=== PATIENT | male | born 1960 | race Hispanic/Latino ===

== ENCOUNTER 2017-10-01 13:32 | Inpatient (IN) | payer OTHER ==
[~2017-10-01] VITALS: Ht 175.3 cm; Wt 125.2 kg
[2017-10-01] MEDS ORDERED: SODIUM CHLORIDE 0.9% 1000ML 1,000 ML IV STA (14:24)
--- NOTE | 2017-10-01 15:53 | Diagnostic Imaging Report ---
PROCEDURE:X-RAY RIGHT ANKLE, COMPLETE INDICATION:Chronic contraction COMPARISON:None. FINDINGS: Deformity of the calcaneus and distal fibula, with amorphous calcific densities projecting in the soft tissues anterolateral to the fibula. Degenerative changes also seen in the ankle mortise. Moderate to marked soft tissue swelling surrounding the ankle. No sclerotic lesions. CONCLUSION: 1. Findings in the right ankle likely reflect sequela of chronic trauma. Infection/osteomyelitis is a consideration in the acute setting.. Jaime De M.D. Dictated by: Jaime De M.D. on 10/01/2017 at 16:01 Electronically approved by: Jaime De M.D. on 10/01/2017 at 16:01
--- NOTE | 2017-10-01 15:55 | Diagnostic Imaging Report ---
PROCEDURE:X-RAY RIGHT FOOT, COMPLETE COMPARISON:None. INDICATIONS:FOOT PAIN, CHRONIC CONTRACTION FINDINGS: Deformity of the calcaneus and distal fibula with bony fragmentation. Degenerative changes in the level of the ankle mortise. No sclerotic lesions. Large inferior calcaneal enthesophyte. Marked soft tissue swelling surrounding the foot. CONCLUSION: Findings likely related to chronic trauma. Infection/osteomyelitis is a consideration in the acute setting. No prior films are available for comparison. Jaime De M.D. Dictated by: Jaime De M.D. on 10/01/2017 at 16:04 Electronically approved by: Jaime De M.D. on 10/01/2017 at 16:04
[2017-10-01] MEDS ORDERED: VANCOMYCIN 1GM/NS 250 ML 250 ML IV STA (16:10)
[2017-10-01 17:21] LABS: BASOPHILS % 0.2 % (0.0-1.0); HEMATOCRIT 33.1 % (38.2-49.6); HEMOGLOBIN 11.7 g/dL (14.0-18.0); LYMPHOCYTES # (AUTO) 0.4 (1.0-3.2); LYMPHOCYTES % 2.3 % (18.0-39.1); MEAN CORPUSCULAR HEMOGLOBIN 38.1 pg (28-32); MEAN CORPUSCULAR HGB CONC 35.3 g/dL (31-35); MEAN CORPUSCULAR VOLUME 107.8 fL (81-99); MONOCYTES # (AUTO) 0.8 (0.2-0.8); NEUTROPHILS # (AUTO) 14.7 (2.1-6.9); NEUTROPHILS % 91.1 % (38.7-80.0); PLATELET COUNT 158 x10e3/uL (140-360); RED BLOOD COUNT 3.07 x10e6/uL (4.3-5.7); RED CELL DISTRIBUTION WIDTH 12.6 % (11.7-14.4)
[2017-10-01 17:41] LABS: ALANINE AMINOTRANSFERASE 17 IU/L (0-55); ALBUMIN 2.9 g/dL (3.5-5.0); ALBUMIN/GLOBULIN RATIO 0.5 (0.8-2.0); ALKALINE PHOSPHATASE 93 IU/L (40-150); ANION GAP 11.2 mmol/L (8-16); BLOOD UREA NITROGEN 15 mg/dL (7-26); BUN/CREATININE RATIO 14 (6-25); CALCIUM 8.8 mg/dL (8.4-10.2); CARBON DIOXIDE 26 mmol/L (22-29); CHLORIDE 97 mmol/L (98-107); CREATININE, SERUM 1.05 mg/dL (0.72-1.25); EST GLOMERULAR FILTRATION RATE > 60 ML/MIN (60-); GLUCOSE 149 mg/dL (74-118); POTASSIUM 3.2 mmol/L (3.5-5.1); SODIUM 131 mmol/L (136-145)
[2017-10-01] MEDS ORDERED: PIPER-TAZ 3.375 GM 50 ML IV STA (18:42)
[2017-10-01] MEDS ORDERED: SODIUM CHLORIDE FLUSH 10 ML SYR INJ PRN (18:45)
[2017-10-01] MEDS ORDERED: ONDANSETRON HCL INJ 2 MG/ML VIAL IV PRN (18:45)
[2017-10-01] MEDS ORDERED: SODIUM CHLORIDE 0.9% 1000ML 1,000 ML IV ONE (18:45)
[2017-10-01] MEDS ORDERED: VANCOMYCIN 1GM/NS 250 ML 250 ML IV ONE (19:00)
[2017-10-01 19:18] LABS: BAND NEUTROPHILS % (MANUAL) 12 %; LYMPHOCYTES % (MANUAL) 2 % (19-48); METAMYELOCYTES % (MANUAL) 1 % (0-0); MONOCYTES % (MANUAL) 7 % (3.4-9.0); NEUTROPHILS % (MANUAL) 78 % (40-74)
[2017-10-01 19:20] LABS: ANISOCYTOSIS SLIGHT; PLATELET ESTIMATE ADEQUATE; PLATELET MORPHOLOGY COMMENT NORMAL; RBC MORPHOLOGY COMMENT NORMAL
[2017-10-01] MEDS ORDERED: SODIUM CHLORIDE 0.9% 1000ML 1,000 ML ONE (23:07)
[2017-10-01 23:15] VITALS: BP 124/74
[2017-10-01] MEDS: PIPER-TAZ 3.375 GM 50 ML IV SCH (23:21)
[2017-10-01] MEDS: ACETAMINOPHEN 325 MG TAB PO PRN (23:27)
[2017-10-02] VITALS: BP 124/74
[2017-10-02] MEDS: MORPHINE SULFATE 5 MG/ML VIAL IV PRN ×2 (02:06→18:55)
[2017-10-02] MEDS: PIPER-TAZ 3.375 GM 50 ML IV SCH ×3 (05:36→22:10)
[2017-10-02 07:23] LABS: BASOPHILS % 0.2 % (0.0-1.0); HEMATOCRIT 29.3 % (38.2-49.6); HEMOGLOBIN 10.4 g/dL (14.0-18.0); LYMPHOCYTES % 6.8 % (18.0-39.1); MEAN CORPUSCULAR HEMOGLOBIN 38.8 pg (28-32); MEAN CORPUSCULAR HGB CONC 35.5 g/dL (31-35); MEAN CORPUSCULAR VOLUME 109.3 fL (81-99); MONOCYTES # (AUTO) 0.9 (0.2-0.8); NEUTROPHILS # (AUTO) 12.3 (2.1-6.9); NEUTROPHILS % 85.9 % (38.7-80.0); PLATELET COUNT 154 x10e3/uL (140-360); RED BLOOD COUNT 2.68 x10e6/uL (4.3-5.7); RED CELL DISTRIBUTION WIDTH 12.7 % (11.7-14.4)
[2017-10-02 07:37] LABS: ALANINE AMINOTRANSFERASE 16 IU/L (0-55); ALBUMIN 2.3 g/dL (3.5-5.0); ALBUMIN/GLOBULIN RATIO 0.4 (0.8-2.0); ALKALINE PHOSPHATASE 73 IU/L (40-150); ANION GAP 11.2 mmol/L (8-16); BLOOD UREA NITROGEN 20 mg/dL (7-26); BUN/CREATININE RATIO 21 (6-25); CALCIUM 8.4 mg/dL (8.4-10.2); CARBON DIOXIDE 27 mmol/L (22-29); CHLORIDE 97 mmol/L (98-107); CREATININE, SERUM 0.97 mg/dL (0.72-1.25); EST GLOMERULAR FILTRATION RATE > 60 ML/MIN (60-); GLUCOSE 108 mg/dL (74-118); POTASSIUM 3.2 mmol/L (3.5-5.1); SODIUM 132 mmol/L (136-145)
[2017-10-02] MEDS: VANCOMYCIN 1GM/NS 250 ML 250 ML IV SCH ×2 (08:12→18:11)
[2017-10-02] MEDS ORDERED: GADOBENATE DIMEGLUMINE 1 ML IV ONE (10:56)
[2017-10-02 12:26] VITALS: BP 155/88
--- NOTE | 2017-10-02 12:39 | Diagnostic Imaging Report ---
MRI of the right foot without contrast. History: Foot pain. Cellulitis. Osteomyelitis. Ulcer. Technique: Multiplanar multisequence MRI of the foot with and without intravenous contrast. 20 cc IV gadolinium contrast material was administered. Comparison: None Findings: Diffuse soft tissue swelling about the foot most pronounced dorsally consistent with cellulitis. There is skin ulceration and skin thickening at the medial aspect of the foot/ankle at the level of the inferior medial talus. This is best seen on series 10 image 21 through 25. There is abnormal adjacent soft tissue edema and abnormal contrast enhancement with fluid tracking from just beneath the skin surface to the ankle and midfoot joints. Fluid is also seen tracking along the posterior ankle tendon sheaths. This is best seen on series 12 image 7 through 17. There are regions of bone marrow edema, cortical erosion and bone fragmentation with marked deformity of the ankle and hindfoot. The talus is partially dislocated in an inferior and medial orientation. This is best seen on series 6 image 14 through 18. There is an unstable medial talar dome osteochondral lesion best seen on series 10 image 25. There is diffuse edema throughout the musculature of the visualized ankle and foot. There is retrocalcaneal bursitis. The Achilles tendon is intact. The plantar fascial tissues are intact. There is bone marrow edema in the visualized portion of the fibula with fragmentation at the tip of the fibula. This is best seen on sagittal series 8 image 19 through 22. Impression: Findings consistent with skin ulceration, cellulitis, osteomyelitis and septic arthritis about the ankle/hindfoot as described above. Signed by: Dr. Sahil Bailey M.D. on 10/02/2017 12:35 PM
[2017-10-02] MEDS: SOD CHL 0.45%/POT CHL 20MEQ 1,000 ML IV SCH (16:09)
[2017-10-02] MEDS: ACETAMINOPHEN 325 MG TAB PO PRN (16:09)
--- NOTE | 2017-10-02 16:35 | History and Physical ---
This 57-year-old gentleman comes in with right leg swelling, erythema and pain. HISTORY OF PRESENT ILLNESS: The patient comes in with an injury to the right foot, apparently a year ago and has seen doctors in the past and has been told that he had venous insufficiency. He has been doing some venous work and also been seeing his primary care physician who asked him to come into the emergency room because of redness in the wound. PAST MEDICAL HISTORY: History of hypertension. PAST SURGICAL HISTORY: Noncontributory except for the venous ablations that he has had. MEDICATIONS: The patient does not remember his hypertensive medication. He is a very poor historian. ALLERGIES: NO KNOWN DRUG ALLERGIES. SOCIAL HISTORY: The patient drinks about a 6 pack of beer a day. FAMILY HISTORY: Positive for diabetes and hypertension. REVIEW OF SYSTEMS: Negative for chest pain. Positive for shortness of breath on exertion. No nauseas, vomiting, diarrhea, no constipation, no rectal bleeding, no hematochezia and no hematemesis. Positive for redness and erythema in the lower extremity and also complains of some fever. PHYSICAL EXAMINATION HEENT: Normocephalic. The patient looks like he is a little jaundiced. CVS: S1 and S2, normal rate and rhythm. ABDOMEN: Nontender, nondistended. EXTREMITIES: Bilateral lower extremities with stasis dermatitis, flaking of the skin, signs suggestive of vascular insufficiency right lower extremity with increased redness, tenderness and also deformity with ulceration to the medial malleolus. The patient has increased bulging what looks like subluxation of the ankle and also drainage from the ulcer present. The patient's sensations are not intact and the patient has good capillary refill, but no dorsalis pedis, no posterior tibial artery pulsations felt. IMAGING: The patient's foot MRI has been done and shows skin ulceration, cellulitis, osteomyelitis and septic arthritis about the ankle and hind foot. LABORATORY DATA: Sodium 131, potassium 3.2, chloride 97. BUN and creatinine 50 and 1.05, bilirubin 1.6. C-reactive protein is pending. AST and ALT were normal. Hematology: White count is 16,000, hemoglobin 11.7, hematocrit 33.1, neutrophil count 91. ASSESSMENT: 1. Septic arthritis of the right foot. 2. Osteomyelitis of the right foot. PLAN: The patient is on vancomycin and Merrem. He needs a PICC line put in. Wound care team is managing his wound. He needs IV antibiotics for at least [address] Wilson has been done. The patient needs long-term care. He needs foot and ankle specialist. He probably will end up with amputation. Further recommendations depending on clinical course. Will continue monitoring the patient. Did mention and explain the condition to the patient and will continue monitoring him. Job#: [id number]
[2017-10-02 16:37] VITALS: BP 126/71
[2017-10-02 20:00] VITALS: BP 104/57
--- NOTE | 2017-10-02 23:33 | Diagnostic Imaging Report ---
EXAM: CHEST XRAY LINE PLACEMENT, AP 1 view DATE: 10/02/2017 10:47 PM Time stamp on exam: 2314 hours INDICATION: PICC placement COMPARISON: None FINDINGS: LINES/TUBES: Distal aspect of a left approach PICC terminates in expected location of the junction of the left brachiocephalic vein with the superior vena cava. LUNGS: No consolidations or edema. PLEURA: No effusions or pneumothorax. HEART AND MEDIASTINUM: Normal size and contour. BONES AND SOFT TISSUES: No acute findings. IMPRESSION: Distal aspect of a left approach PICC terminates in expected location of the junction of the left brachiocephalic vein with the superior vena cava. Signed by: Dr. Annita Szymanski M.D. on 10/02/2017 11:30 PM
[2017-10-03] VITALS (9 sets, daily range): BP systolic 104–142; BP diastolic 57–79
[2017-10-03] MEDS: PIPER-TAZ 3.375 GM 50 ML IV SCH ×3 (05:38→22:20)
[2017-10-03] MEDS: ACETAMINOPHEN 325 MG TAB PO PRN ×2 (06:06→20:41)
[2017-10-03 07:13] LABS: BASOPHILS % 0.1 % (0.0-1.0); HEMATOCRIT 26.1 % (38.2-49.6); HEMOGLOBIN 9.1 g/dL (14.0-18.0); LYMPHOCYTES % 8.4 % (18.0-39.1); MEAN CORPUSCULAR HEMOGLOBIN 38.2 pg (28-32); MEAN CORPUSCULAR HGB CONC 34.9 g/dL (31-35); MEAN CORPUSCULAR VOLUME 109.7 fL (81-99); MONOCYTES # (AUTO) 0.8 (0.2-0.8); MONOCYTES % 6.6 % (4.4-11.3); NEUTROPHILS # (AUTO) 9.9 (2.1-6.9); NEUTROPHILS % 83.6 % (38.7-80.0); PLATELET COUNT 160 x10e3/uL (140-360); RED BLOOD COUNT 2.38 x10e6/uL (4.3-5.7)
[2017-10-03 07:45] LABS: ALANINE AMINOTRANSFERASE 15 IU/L (0-55); ALBUMIN 1.9 g/dL (3.5-5.0); ALBUMIN/GLOBULIN RATIO 0.4 (0.8-2.0); ALKALINE PHOSPHATASE 58 IU/L (40-150); ANION GAP 11.3 mmol/L (8-16); BLOOD UREA NITROGEN 19 mg/dL (7-26); BUN/CREATININE RATIO 24 (6-25); CALCIUM 7.9 mg/dL (8.4-10.2); CARBON DIOXIDE 25 mmol/L (22-29); CHLORIDE 99 mmol/L (98-107); CREATININE, SERUM 0.78 mg/dL (0.72-1.25); EST GLOMERULAR FILTRATION RATE > 60 ML/MIN (60-); GLUCOSE 98 mg/dL (74-118); POTASSIUM 3.3 mmol/L (3.5-5.1); SODIUM 132 mmol/L (136-145)
[2017-10-03] MEDS: VANCOMYCIN 1GM/NS 250 ML 250 ML IV SCH ×2 (08:45→20:29)
[2017-10-03] MEDS: SOD CHL 0.45%/POT CHL 20MEQ 1,000 ML IV SCH ×2 (11:41→17:14)
[2017-10-03 13:33] LABS: INR 1.21; PROTHROMBIN TIME 15.9 seconds (11.9-14.5)
--- NOTE | 2017-10-03 14:04 | Consultation ---
DATE OF CONSULTATION: REASON FOR CONSULTATION: Osteomyelitis of the right ankle. Thank you so much for asking me to see this patient. HISTORY OF PRESENT ILLNESS: This patient who is a pleasant 57-year-old gentleman with history of obesity and hypertension. He had an injury to his right foot in February. The patient has been told he had venous insufficiency. It seems to me also he have some Charcot joint in that joint. He said since February, it has been getting progressively worse, but apparently a few days ago, he fell and injured his foot again. Now, there is redness and swelling. There is also an ulcer on the medial aspect of his foot and there is some drainage. The patient denies any fever or chills. He said he is otherwise lying in bed comfortably. He said he cannot walk on the foot because of the pain. PAST MEDICAL HISTORY: Obesity, venous stasis and ablation, dermatitis and chronic injury to the ankle, right. ALLERGIES: NKA. SOCIAL HISTORY: He drinks about 6 beers a day. No drug abuse or alcohol abuse. FAMILY HISTORY: Hypertension and diabetes. MEDICATIONS: His medication list reviewed. REVIEW OF SYSTEMS HEENT: There is no headache, visual changes, hearing changes. GI: There is no nausea, no vomiting, no diarrhea. CARDIAC: There is no arrhythmia or chest pain. NEURO: No seizure activity. SKIN: There are no other rashes except chronic changes of the venous system. His all other symptoms are within normal limits. PHYSICAL EXAMINATION GENERAL: He is currently alert, oriented. Does not seem to be in acute distress. VITAL SIGNS: Stable, currently afebrile. HEENT: He is normocephalic, not appear icteric. NECK: Supple. No JVD. No lymphadenopathy. No thyromegaly. CHEST: Clear bilateral. HEART: S1, S2. No S3, no S4. No murmur. ABDOMEN: Soft, obese (BMI is 41.5 kg per square meter). EXTREMITIES: On the right leg, there is some edema and there is some erythema. The ankle itself seems to be swollen. LABORATORY DATA: Reviewed. His white count on admission was 16.16, hemoglobin 11.7, hematocrit 33, his platelet 158. Today white count 11.89, hemoglobin of 9.1. His sodium 132, potassium 3.3. His creatinine is 0.77. Albumin 1.9. C-reactive protein was 110. His blood culture is showing Strep agalactiae group B as well as blood culture showing Staph aureus. The patient had an MRI of his foot, which showed skin ulcer, cellulitis, osteomyelitis, and septic arthritis. IMPRESSION: Osteomyelitis of the right foot, septic joint with bacteremia with Staph aureus as well as strep group B. I would suggest recheck blood cultures, follow sed rate as well as C-reactive protein. Obtain echocardiogram. He would need 8 weeks of IV antibiotic. I will discuss with orthopedic. Further recommendations to follow. Job#: [id number] VAS
--- NOTE | 2017-10-03 20:03 | Consultation ---
DATE OF CONSULTATION: October 03, 2017 CARDIOLOGY CONSULTATION REQUESTING PHYSICIAN: Dr. Elie Espinosa. REASON FOR CONSULTATION: Right lower extremity cellulitis. HISTORY OF PRESENT ILLNESS: This is a 57-year-old man with history of hypertension, who presents with worsening swelling, erythema and pain of his right foot. He reports this wound has been ongoing. However, he came to the hospital because he was having increasing pain with ambulation. He denies any history of cardiac disease. Denies chest pain, shortness of breath, palpitations, orthopnea, PND, lightheadedness or syncope. REVIEW OF SYSTEMS: Negative except as per HPI. PAST MEDICAL HISTORY: Hypertension. PAST SURGICAL HISTORY: Venous ablations. ALLERGIES: NO KNOWN DRUG ALLERGIES. MEDICATIONS: Please EMR. SOCIAL HISTORY: No tobacco or illicit drugs but does drink beer daily. FAMILY HISTORY: Noncontributory. PHYSICAL EXAMINATION VITAL SIGNS: Temperature 99.5 degrees, pulse 90, respiratory rate 20, blood pressure 142/78, oxygen saturation 100% on room air. GENERAL: A well-developed, well-nourished man in no acute distress. HEENT: Normocephalic, atraumatic. Pupils equal, no scleral icterus. NECK: Supple. No thyromegaly or cervical lymphadenopathy, no carotid bruits. LUNGS: Clear to auscultation bilaterally. No wheezes or crackles. CARDIOVASCULAR: Normal rate, regular rhythm. No murmur. Normal S1/S2. ABDOMEN: Soft, nontender. EXTREMITIES: Pitting edema is present with skin changes consistent with chronic venous stasis. He has marked swelling of the medial aspect of his right ankle and foot with a deformity. NEURO: Nonfocal exam. LABS: WBC 11.89, hemoglobin 9.1, hematocrit 26.1, platelets 160. Sodium 132, potassium 3.3, chloride 99, CO2 25, BUN 19, creatinine 0.78. FOOT MRI: With findings consistent with skin ulceration, cellulitis, osteomyelitis and septic arthritis about the ankle/hindfoot. IMPRESSION 1. Septic arthritis and osteomyelitis of the right foot. 2. Hypertension. 3. Strep agalactiae group B bacteremia as well as Staphylococcus aureus bacteremia. RECOMMENDATIONS 1. Antibiotics per primary service. Bilateral lower extremity arterial Doppler has been ordered. We will review the images once they are available. 2. Given his Staph aureus bacteremia, we will also obtain an echocardiogram. If this is indeed true, he will need GENARO to evaluate for endocarditis. Thank you for this consult. We will continue to follow. Job#: [id number] EV
[2017-10-03] MEDS: MORPHINE SULFATE 5 MG/ML VIAL IV PRN (20:21)
[2017-10-04] VITALS (8 sets, daily range): BP systolic 101–148; BP diastolic 66–82
[2017-10-04] MEDS: SOD CHL 0.45%/POT CHL 20MEQ 1,000 ML IV SCH (02:45)
[2017-10-04] MEDS: ACETAMINOPHEN 325 MG TAB PO PRN ×3 (04:48→22:04)
[2017-10-04] MEDS: PIPER-TAZ 3.375 GM 50 ML IV SCH (06:37)
[2017-10-04] MEDS: VANCOMYCIN 1GM/NS 250 ML 250 ML IV SCH (08:27)
[2017-10-04 08:42] LABS: BASOPHILS % 0.3 % (0.0-1.0); EOSINOPHILS % 0.2 % (0.0-6.0); HEMATOCRIT 25.2 % (38.2-49.6); HEMOGLOBIN 8.8 g/dL (14.0-18.0); LYMPHOCYTES # (AUTO) 1.2 (1.0-3.2); MEAN CORPUSCULAR HEMOGLOBIN 38.4 pg (28-32); MEAN CORPUSCULAR HGB CONC 34.9 g/dL (31-35); MONOCYTES # (AUTO) 0.8 (0.2-0.8); MONOCYTES % 7.1 % (4.4-11.3); NEUTROPHILS # (AUTO) 8.7 (2.1-6.9); NEUTROPHILS % 78.8 % (38.7-80.0); PLATELET COUNT 161 x10e3/uL (140-360); RED BLOOD COUNT 2.29 x10e6/uL (4.3-5.7); RED CELL DISTRIBUTION WIDTH 12.6 % (11.7-14.4)
[2017-10-04] MEDS: MORPHINE SULFATE 5 MG/ML VIAL IV PRN (09:00)
[2017-10-04 09:08] LABS: ANION GAP 11.3 mmol/L (8-16); BLOOD UREA NITROGEN 15 mg/dL (7-26); BUN/CREATININE RATIO 19 (6-25); CALCIUM 7.8 mg/dL (8.4-10.2); CARBON DIOXIDE 25 mmol/L (22-29); CHLORIDE 101 mmol/L (98-107); CREATININE, SERUM 0.79 mg/dL (0.72-1.25); EST GLOMERULAR FILTRATION RATE > 60 ML/MIN (60-); GLUCOSE 100 mg/dL (74-118); POTASSIUM 3.3 mmol/L (3.5-5.1); SODIUM 134 mmol/L (136-145)
[2017-10-04 10:20] LABS: EOSINOPHILS % (MANUAL) 1 % (0-7); HYPOCHROMASIA MODERATE; LYMPHOCYTES % (MANUAL) 6 % (19-48); MONOCYTES % (MANUAL) 7 % (3.4-9.0); NEUTROPHILS % (MANUAL) 86 % (40-74)
[2017-10-04 10:21] LABS: PLATELET ESTIMATE ADEQUATE; PLATELET MORPHOLOGY COMMENT NORMAL; RBC MORPHOLOGY COMMENT NORMAL
--- NOTE | 2017-10-04 11:29 | Progress Note ---
DATE: October 04, 2017 CARDIOLOGY PROGRESS NOTE SUBJECTIVE: Mr. Olsen is scheduled to undergo I and D of his right foot. OBJECTIVE VITALS: Temperature 100.4. Heart rate 83. Blood pressure 123/66. O2 sat 97%. CARDIOVASCULAR: Irregular rhythm. No murmurs or gallops. LUNGS: Clear to auscultation bilaterally. Arterial duplex study of the left lower extremity demonstrates normal flow. In the right lower extremity, however, monophasic waveforms noted in all levels. ASSESSMENT: Peripheral arterial disease with osteomyelitis and septic arthritis. PLAN: CT angiography with IV contrast to further delineate the extent of peripheral arterial disease and intervention as indicated. This was discussed with the patient. Job#: [id number]
[2017-10-04] MEDS ORDERED: LIDOCAINE HCL 1% LOCAL INJ 20 ML VIAL ONE (12:30)
[2017-10-04 13:39] LABS: BODY FLUID APPEARANCE TURBID; BODY FLUID COLOR RED; BODY FLUID TYPE SYNOVIAL
[2017-10-04] MEDS: CEFAZOLIN SOD 1 GM in WATER STERILE 10ML VIAL 10 ML IV SCH ×2 (13:42→22:04)
[2017-10-04 14:03] LABS: RBC,BODY FLUID 11385 cells/uL; WBC,BODY FLUID 3465 cells/uL
--- NOTE | 2017-10-04 14:11 | Diagnostic Imaging Report ---
EXAM: CTA ABDOMEN AND PELVIS AND LOWER EXTREMITY, WITH CONTRAST. INDICATION: \S\PAD - ? ILIAC \[id number] \S\[id number] COMPARISON: MRI right foot 10/02/2017 and right foot x-ray from 10/01/2017 Technique: Multidetector [address] scanning with 2 mm cuts of the abdomen, pelvis and bilateral thighs after administration of 100 cc IV of Omnipaque 350. Coronal and sagittal multiplanar, MIP thin and thick cuts, and 3-D volume-rendering reformations were obtained. In addition, delay images of the lower extremities below the knee were obtained. IV CONTRAST: 100 mL of Isovue-370 ORAL CONTRAST: None COMPLICATIONS: None RADIATION DOSE: Total DLP: 1642.6 mGy*cm Estimated effective dose: (DLP x 0.015 x size factor) mSv CTDIvol has been reviewed. It is below the limits set by the Radiation Protocol Committee (RPC). FINDINGS: Potential study limitations: None. VASCULAR WITH ADVANCED 3-D OFF-LINE POSTPROCESSING: The abdominal aorta is normal in course, caliber, and contour. There is no acute aortic pathology. PELVIS VESSELS: Bilateral common, external, and internal iliac arteries are patent with associated minimal atherosclerotic calcifications without significant stenosis. The celiac axis, SMA, and GALA are patent. There are single renal arteries bilaterally, both of which appear patent. RIGHT LOWER EXTREMITY: Right common femoral, profundus femoral, superficial femoral, and popliteal arteries are patent. There is a patent trifurcation with both anterior and posterior tibial arteries supply the foot. LEFT LOWER EXTREMITY: Left common femoral, profundus femoral, superficial femoral, and popliteal arteries are patent. There is a patent trifurcation with both anterior and posterior tibial arteries supply the foot. Mild no significant obstructing atherosclerotic calcifications involving the popliteal artery, tibioperoneal trunk, and proximal anterior and posterior tibial arteries. NON-VASCULAR FINDINGS: LOWER CHEST: Right trace pleural effusion. The visualized lung bases are clear. ABDOMEN: The liver and gallbladder appear normal. 5.1 x 3.4 cm homogeneous hypodensity within the anterior aspect of the spleen may be due to early arterial phase, cystic change, or infarct. Diffuse fatty replacement of the pancreas. Thickening of the adrenal glands, left greater than right, without discrete nodules. Both kidneys are normal in size, shape, and density. There is no abnormal mass or hydronephrosis. PELVIS: Few nonspecific left retroperitoneal enlarged lymph nodes measuring up to 1.4 cm in transverse diameter on series 3, image 58. No free fluid or free air within the abdomen or pelvis. Scattered diverticulosis throughout the colon without diverticulitis. Moderate distention of the urinary bladder. BONES/SOFT TISSUES: skin ulceration, cellulitis, osteomyelitis and septic arthritis about the right ankle/hindfoot as described on MRI foot 10/02/2017. Multiloculated peripherally enhancing fluid collection within the posterior ankle joint with the largest pocket measuring up to 4.3 x 3.6 cm consistent with abscess. IMPRESSION: 1. Normal size of the abdominal aorta and pelvic arteries with minimal nonobstructing atherosclerotic calcifications. 2. Right lower extremity: Widely patent proximal and distal runoff without atherosclerotic disease. 3. Left lower extremity: Widely patent proximal and distal runoff with mild no significant obstructing atherosclerotic calcifications within the popliteal and proximal anterior and posterior tibial arteries. 4. Osteomyelitis of the right foot with multiloculated fluid collection in the posterior ankle joint suggestive of abscess. Signed by: Dr. Nora Onofre M.D. on 10/04/2017 2:08 PM
[2017-10-04] MEDS: COLLAGENASE OINTMENT 30 GM TUBE TP SCH (14:48)
[2017-10-04] MEDS: MUPIROCIN 2% OINT 22 GM TUBE TOP SCH (14:48)
[2017-10-04 15:07] LABS: LYMPHOCYTES,BODY FLUID 5 %; MONO/MACROPHG,BODY FLUID 4 %; NEUTROPHILS,BODY FLUID 91 %
[2017-10-04] MEDS ORDERED: SODIUM CHLORIDE 0.9% 50ML 50 ML ONE (17:04)
[2017-10-04] MEDS ORDERED: IOPAMIDOL 370 MG/ML 200 ML INFUS..BTL INJ ONE (17:04)
[2017-10-05] VITALS (9 sets, daily range): BP systolic 121–181; BP diastolic 69–82
[2017-10-05] MEDS: MORPHINE SULFATE 5 MG/ML VIAL IV PRN ×2 (00:46→11:48)
[2017-10-05] MEDS: CEFAZOLIN SOD 1 GM in WATER STERILE 10ML VIAL 10 ML IV SCH ×3 (06:05→21:35)
[2017-10-05] MEDS ORDERED: ALTEPLASE RECOMBINANT 2 MG/2 ML VIAL IV PRN (08:00)
[2017-10-05] MEDS: ACETAMINOPHEN 325 MG TAB PO PRN ×2 (08:18→16:40)
[2017-10-05] MEDS ORDERED: LOSARTAN-HCTZ1 EAC1 (08:19)
[2017-10-05] MEDS ORDERED: GUAIFENESIN 200 MG/10 ML UDC PO PRN (10:30)
[2017-10-05] MEDS ORDERED: POTASSIUM CHLORIDE 20 MEQ TAB CR PO ONE (11:30)
--- NOTE | 2017-10-05 11:42 | Progress Note ---
DATE: October 05, 2017 CARDIOLOGY PROGRESS NOTE SUBJECTIVE: Mr. Olsen continues to have some pain in the right leg. PHYSICAL EXAMINATION VITALS: Temperature 100.7. Heart rate 96. Blood pressure 152/79. CARDIOVASCULAR: Regular rhythm. Systolic murmur. No gallops. LUNGS: Clear to auscultation bilaterally. CT angiogram of the abdomen with runoff demonstrates no evidence of peripheral arterial disease. Microbiology: Blood cultures revealed Staphylococcus aureus. A transthoracic echocardiogram was of poor quality, but the aortic valve appeared to be sclerotic without any overt evidence of vegetation. ASSESSMENT 1. Minimal peripheral arterial disease with nonhealing ulceration, osteomyelitis and septic arthritis of the right lower extremity. 2. Staphylococcal bacteremia. RECOMMENDATIONS: No intervention is required as the patient has minimal peripheral arterial disease with excellent runoff to the right foot. However, he does have staphylococcal bacteremia. He will require transesophageal echocardiogram. This was discussed with the patient and the family. They are agreeable for the same. We will schedule this in the next few days. Job#: [id number]
[2017-10-05] MEDS: MUPIROCIN 2% OINT 22 GM TUBE TOP SCH (13:56)
[2017-10-05] MEDS: COLLAGENASE OINTMENT 30 GM TUBE TP SCH (13:56)
[2017-10-05] MEDS: LOSARTAN POTASSIUM 100 MG TAB PO SCH (16:59)
[2017-10-05] MEDS: HYDROCHLOROTHIAZIDE 25 MG TAB PO SCH (16:59)
[2017-10-05] MEDS ORDERED: CEFAZOLIN SOD 1 GM VIAL ONE (21:32)
[2017-10-06 00:25] VITALS: BP 134/74
[2017-10-06] MEDS: ACETAMINOPHEN 325 MG TAB PO PRN ×2 (00:30→09:00)
[2017-10-06 04:00] VITALS: BP 121/81
[2017-10-06] MEDS ORDERED: CEFAZOLIN SOD 1 GM VIAL ONE (05:25)
[2017-10-06] MEDS: CEFAZOLIN SOD 1 GM in WATER STERILE 10ML VIAL 10 ML IV SCH ×3 (05:27→22:07)
[2017-10-06] MEDS: MORPHINE SULFATE 5 MG/ML VIAL IV PRN ×4 (06:52→22:16)
[2017-10-06 07:03] LABS: BASOPHILS % 0.3 % (0.0-1.0); EOSINOPHILS # (AUTO) 0.1 (0.0-0.4); EOSINOPHILS % 0.6 % (0.0-6.0); HEMATOCRIT 25.9 % (38.2-49.6); HEMOGLOBIN 8.9 g/dL (14.0-18.0); LYMPHOCYTES # (AUTO) 1.5 (1.0-3.2); LYMPHOCYTES % 10.6 % (18.0-39.1); MEAN CORPUSCULAR HEMOGLOBIN 38.2 pg (28-32); MEAN CORPUSCULAR HGB CONC 34.4 g/dL (31-35); MEAN CORPUSCULAR VOLUME 111.2 fL (81-99); MONOCYTES # (AUTO) 0.9 (0.2-0.8); NEUTROPHILS # (AUTO) 11.4 (2.1-6.9); PLATELET COUNT 246 x10e3/uL (140-360); RED BLOOD COUNT 2.33 x10e6/uL (4.3-5.7); RED CELL DISTRIBUTION WIDTH 12.7 % (11.7-14.4)
[2017-10-06 07:26] LABS: ANION GAP 9.6 mmol/L (8-16); BLOOD UREA NITROGEN 8 mg/dL (7-26); BUN/CREATININE RATIO 11 (6-25); CALCIUM 8.2 mg/dL (8.4-10.2); CARBON DIOXIDE 25 mmol/L (22-29); CHLORIDE 99 mmol/L (98-107); CREATININE, SERUM 0.72 mg/dL (0.72-1.25); EST GLOMERULAR FILTRATION RATE > 60 ML/MIN (60-); GLUCOSE 103 mg/dL (74-118); POTASSIUM 3.6 mmol/L (3.5-5.1); SODIUM 130 mmol/L (136-145)
[2017-10-06 08:00] VITALS: BP 141/62
[2017-10-06] MEDS: COLLAGENASE OINTMENT 30 GM TUBE TP SCH (08:00)
[2017-10-06] MEDS: MUPIROCIN 2% OINT 22 GM TUBE TOP SCH (08:00)
[2017-10-06] MEDS: LOSARTAN POTASSIUM 100 MG TAB PO SCH (08:40)
[2017-10-06] MEDS: HYDROCHLOROTHIAZIDE 25 MG TAB PO SCH (08:40)
[2017-10-06 12:00] VITALS: BP 128/89
[2017-10-06 16:00] VITALS: BP 157/82
--- NOTE | 2017-10-06 19:05 | Progress Note ---
DATE: October 06, 2017 SUBJECTIVE: The patient denies chest pain or shortness of breath. OBJECTIVE VITAL SIGNS: Temperature 100 degrees, pulse 87, respiratory rate 18, blood pressure 141/62, oxygen saturation 100% on room air. GENERAL: Awake, alert and in no acute distress. LUNGS: Clear to auscultation bilaterally. No wheezes or crackles. CARDIOVASCULAR: Normal rate, regular rhythm. No murmur. Normal S1/S2. ABDOMEN: Soft, nontender. EXTREMITIES: Right lower extremity with dressing intact. CARDIAC MEDICATIONS: 1. Hydrochlorothiazide at 25 mg p.o. daily. 2. Losartan 100 mg p.o. daily. LABS: WBC 14.1, hemoglobin 8.9, hematocrit 25.9, platelets 246,000, sodium 130, potassium 3.6, chloride 99, CO2 of 25, BUN 8, creatinine 0.72. Blood cultures growing Staphylococcus aureus as well as Streptococcus agalactiae group B. IMPRESSION 1. Cellulitis, osteomyelitis and septic arthritis of the ankle/hindfoot. 2. Minimal peripheral arterial disease with nonhealing infection of the right lower extremity. 3. Staphylococcus aureus bacteremia. 4. Hypertension. RECOMMENDATIONS: Given Staphylococcus aureus bacteremia, the patient needs GENARO to evaluate for endocarditis. Plan to be done tomorrow. This was discussed with the patient and the family and they are agreeable to proceed. N.p.o. after midnight. Management of osteomyelitis and septic arthritis per primary service. Antibiotics per infection disease. Thank you for this consult. We will continue to follow. Job#: [id number] GH MTDD
[2017-10-06 21:31] VITALS: BP 147/81
[2017-10-07 01:25] VITALS: BP 160/71
[2017-10-07] MEDS: ACETAMINOPHEN 325 MG TAB PO PRN (02:29)
[2017-10-07 05:15] VITALS: BP 117/68
[2017-10-07] MEDS: CEFAZOLIN SOD 1 GM in WATER STERILE 10ML VIAL 10 ML IV SCH (05:57)
[2017-10-07 08:00] VITALS: BP 142/80
[2017-10-07] MEDS: MUPIROCIN 2% OINT 22 GM TUBE TOP SCH (08:00)
[2017-10-07] MEDS: COLLAGENASE OINTMENT 30 GM TUBE TP SCH (08:00)
[2017-10-07] MEDS: MORPHINE SULFATE 5 MG/ML VIAL IV PRN (08:05)
[2017-10-07] MEDS: HYDROCHLOROTHIAZIDE 25 MG TAB PO SCH (09:00)
[2017-10-07] MEDS: LOSARTAN POTASSIUM 100 MG TAB PO SCH (09:00)
[2017-10-07] MEDS ORDERED: BENZOCAINE 20% SPR 60 ML CAN ONE (10:07)
[2017-10-07] MEDS ORDERED: SODIUM CHLORIDE 0.9% 1000ML 1,000 ML ONE (10:08)
[2017-10-07 12:00] VITALS: BP 148/79
[2017-10-07] MEDS ORDERED: CEFAZOLIN SOD 2 GM in WATER STERILE 10ML VIAL 10 ML IV SCH ×2 (14:00→20:30)
--- NOTE | 2017-10-07 14:28 | Progress Note ---
DATE: INFECTIOUS DISEASE PROGRESS NOTE Mr. Olsen is doing fair. He is continuing to have sweating and fever, but he did agree to [id number] amputation, which I think is appropriate. REVIEW OF SYSTEMS: There is nothing new today. LABORATORY DATA: He grew Strep agalactiae group B and Staph aureus both in the blood and in the foot, the ankle aspiration, and he is on cefazolin. His white count is 14.11, hemoglobin 8.9. His sodium is 130, potassium 3.6 and creatinine of 0.72. PHYSICAL EXAMINATION GENERAL: He is currently alert, oriented, does not seem to be in acute distress. VITAL SIGNS: Stable. Currently afebrile. HEENT: He does not appear icteric. NECK: Supple. CHEST: Clear. HEART: S1 and S2. No S3 or S4, no murmur. ABDOMEN: Soft. IMPRESSION 1. Sepsis secondary to Staph aureus, Methicillin-sensitive Staph aureus and strep secondary to infected joint with osteomyelitis in a patient who is morbidly obese. His GENARO is negative. The plan is to continue with intravenous cefazolin for 8 weeks, 2 g q.8 h. Will get a PICC line in him and amputation below the knee planned for . It is going to be a little bit difficult healing because of his obesity and his venous stasis dermatitis. 2. Anemia. 3. Will follow. Job#: [id number] EV
[2017-10-07 16:00] VITALS: BP 136/80
--- NOTE | 2017-10-07 17:21 | Progress Note ---
DATE: October 07, 2017 CARDIOLOGY PROGRESS NOTE SUBJECTIVE: Patient denies chest pain or shortness of breath. He was seen prior to transesophageal echocardiogram. OBJECTIVE VITAL SIGNS: Temperature 97.8 degrees, pulse 80, respiratory rate 20, blood pressure 142/80, oxygen saturation 100% on room air. GENERAL: Awake, alert, in no acute distress. LUNGS: Clear to auscultation bilaterally. No wheezes or crackles. CARDIOVASCULAR: Normal rate, regular rhythm. No murmur. Normal S1 and S2. ABDOMEN: Soft, nontender. EXTREMITIES: Right lower extremity with dressing intact. CARDIAC MEDICATIONS 1. Hydrochlorothiazide 25 mg p.o. daily. 2. Losartan 100 mg p.o. daily. LABS: None today. IMPRESSION 1. Cellulitis, osteomyelitis and septic arthritis of the right ankle/hindfoot. 2. Minimal peripheral arterial disease with nonhealing infection of the right lower extremity. 3. Staphylococcus aureus bacteremia. 4. Hypertension. RECOMMENDATIONS: Transesophageal echocardiogram did not reveal any evidence of vegetations. Infectious Disease was informed of these findings. The patient is now agreeable to proceeding with a right BKA. Antibiotics per Infectious Disease. Continue current cardiac medications otherwise. Thank you for this consult. We will continue to follow. Job#: [id number] EV
[2017-10-07] MEDS: CEFAZOLIN SOD 2 GM/D5W 50ML 50 ML IV SCH ×2 (17:45→22:20)
[2017-10-07] MEDS ORDERED: MIDAZOLAM HCL 2 MG/2 ML VIAL ONE (19:34)
[2017-10-07] MEDS ORDERED: FENTANYL CITRATE/PF 100MCG/2 ML INJ ONE (19:34)
[2017-10-07] MEDS ORDERED: ACETAMINOPHEN 1000 MG/100 ML IV ONE (19:43)
[2017-10-07] MEDS ORDERED: PROPOFOL IV EMULSION 10 MG/ML 20 ML VIAL ONE (19:43)
[2017-10-07 20:00] VITALS: BP 144/87
[2017-10-07] MEDS ORDERED: CEFAZOLIN SOD 2 GM in WATER STERILE 10ML VIAL 10 ML IV ONE (20:15)
[2017-10-08] VITALS (8 sets, daily range): BP systolic 121–185; BP diastolic 69–95
[2017-10-08] MEDS ORDERED: SODIUM CHLORIDE 0.9% 1000ML 1,000 ML IV SCH
[2017-10-08] MEDS ORDERED: MORPHINE SULFATE 4 MG/ML SYR IV PRN (00:15)
[2017-10-08] MEDS ORDERED: MORPHINE SULFATE 2 MG/ML SYR ONE (00:19)
[2017-10-08] MEDS: CEFAZOLIN SOD 2 GM/D5W 50ML 50 ML IV SCH ×3 (05:59→21:02)
[2017-10-08] MEDS: LOSARTAN POTASSIUM 100 MG TAB PO SCH (09:00)
[2017-10-08] MEDS: COLLAGENASE OINTMENT 30 GM TUBE TP SCH (09:00)
[2017-10-08] MEDS: MUPIROCIN 2% OINT 22 GM TUBE TOP SCH (09:00)
[2017-10-08] MEDS: HYDROCHLOROTHIAZIDE 25 MG TAB PO SCH (09:00)
[2017-10-08] MEDS ORDERED: BACITRACIN 50,000 UNIT VIAL ONE (09:53)
--- NOTE | 2017-10-08 12:45 | Progress Note ---
DATE: Mr. Olsen is doing well today. There is no new complaint. He is going for his surgery, [id number] amputation. REVIEW OF SYSTEMS: There is nothing new today. PHYSICAL EXAMINATION GENERAL: Alert, oriented, does not seem in acute distress. VITAL SIGNS: Stable. Afebrile. HEENT: He does not appear icteric. NECK: Supple. CHEST: Clear. COR: S1 and S2. No murmurs. ABDOMEN: Soft. Bowel sounds present. Obese. EXTREMITIES: In the leg, there is no new finding. LABORATORY DATA: White count is 14.1, hemoglobin 8.9, and hematocrit 25. His sodium is 130, potassium 3.6, and creatinine 0.72. His cultures, there is no new data. The repeat blood cultures have been negative. IMPRESSION 1. Septic joint and osteomyelitis in a patient who is obese secondary to Staph aureus, methicillin-sensitive Staph aureus, and streptococcus. His GENARO is negative. The plan is 8 weeks of cefazolin 2 g q.8 post-amputation, which is going to take place today. 1. Obesity. 2. Hypertension. Will follow. Job#: [id number] SAK
[2017-10-08] MEDS ORDERED: ACETAMINOPHEN 1000 MG/100 ML IV PRN (13:30)
[2017-10-08] MEDS ORDERED: HYDROMORPHONE 0.2MG/ML-SOD CHL 30ML PCA SYRINGE IV PRN (13:30)
[2017-10-08] MEDS ORDERED: ONDANSETRON HCL INJ 2 MG/ML VIAL IV PRN (13:30)
[2017-10-08] MEDS ORDERED: DIPHENHYDRAMINE HCL INJ 50 MG/ML VIAL IM/IV PRN (13:30)
[2017-10-08] MEDS ORDERED: NALOXONE HCL INJ 0.4 MG/ML AMP IV PRN (13:30)
[2017-10-08] MEDS ORDERED: CEFAZOLIN SOD 1 GM/NS 50ML 50 ML IV SCH (14:00)
[2017-10-08] MEDS ORDERED: FENTANYL CITRATE/PF 100MCG/2 ML INJ ONE ×2 (14:03→18:21)
[2017-10-08] MEDS ORDERED: HYDROMORPHONE 2MG/ML INJ ONE (14:24)
--- NOTE | 2017-10-08 15:37 | Progress Note ---
DATE: October 08, 2017 CARDIOLOGY PROGRESS NOTE SUBJECTIVE: The patient denies chest pain or shortness of breath. He was seen in recovery after a right BKA. OBJECTIVE VITAL SIGNS: Temperature 98.9 degrees, pulse 76, respiratory rate 18, blood pressure 121/71. Oxygen saturation 100% on room air. GENERAL: Somewhat somnolent, in no acute distress. LUNGS: Clear to auscultation bilaterally. No wheezes or crackles. CARDIOVASCULAR: Normal rate, regular rhythm. No murmur. Normal S1 and S2. ABDOMEN: Soft, nontender. EXTREMITIES: Status post right BKA with surgical dressing noted. CARDIAC MEDICATIONS 1. Hydrochlorothiazide 25 mg p.o. daily. 2. Losartan 100 mg p.o. daily. LABS: None today. IMPRESSION 1. Cellulitis, osteomyelitis and septic arthritis of the right ankle/hindfoot, status post right [id number] amputation. 2. Minimal peripheral arterial disease with nonhealing infection of the right lower extremity. 3. Staphylococcus aureus bacteremia. 4. Hypertension. RECOMMENDATIONS: Transesophageal echocardiogram did not reveal any evidence of vegetation. Antibiotics per infectious disease. The patient has undergone a right BKA for source control. Continue current cardiac medications without changes. Thank you for this consult. We will continue to follow. Job#: [id number]
[2017-10-08] MEDS ORDERED: CEFAZOLIN SOD 1 GM VIAL IV SCH (16:00)
[2017-10-08] MEDS: SODIUM CHLORIDE 0.9% 1000ML 1,000 ML IV SCH ×2 (16:44→21:02)
[2017-10-08] MEDS ORDERED: DEXAMETHASONE SOD PHOS INJ 4 MG/ML VIAL ONE (17:52)
[2017-10-08] MEDS ORDERED: PROPOFOL IV EMULSION 10 MG/ML 20 ML VIAL ONE (17:52)
[2017-10-08] MEDS ORDERED: LIDOCAINE HCL 2% LOCAL INJ 5 ML SDV VIAL INJ ONE (17:52)
[2017-10-08] MEDS ORDERED: ONDANSETRON HCL INJ 2 MG/ML VIAL ONE (17:52)
[2017-10-08] MEDS ORDERED: SEVOFLURANE INHAL SOLN 250 ML PEN BTL ONE (17:52)
[2017-10-08] MEDS ORDERED: MIDAZOLAM HCL 2 MG/2 ML VIAL ONE (18:21)
[2017-10-09] VITALS (8 sets, daily range): BP systolic 123–165; BP diastolic 58–95
[2017-10-09 07:37] LABS: HEMOGLOBIN 7.4 g/dL (14.0-18.0)
[2017-10-09] MEDS ORDERED: SODIUM CHLORIDE 0.9% 250ML 250 ML IV ONE (08:15)
[2017-10-09] MEDS ORDERED: KETOROLAC TROMETHAMINE 10 MG TAB PO PRN (08:30)
[2017-10-09] MEDS ORDERED: KETOROLAC TROMETHAMINE 30 MG/ML VIAL IV NR (08:45)
[2017-10-09] MEDS: LOSARTAN POTASSIUM 100 MG TAB PO SCH (09:00)
[2017-10-09] MEDS: HYDROCHLOROTHIAZIDE 25 MG TAB PO SCH (09:00)
[2017-10-09] MEDS: MUPIROCIN 2% OINT 22 GM TUBE TOP SCH (09:00)
[2017-10-09] MEDS: COLLAGENASE OINTMENT 30 GM TUBE TP SCH (09:00)
[2017-10-09] MEDS: HYDROMORPHONE 0.2MG/ML-SOD CHL 30ML PCA SYRINGE IV PRN (09:20)
[2017-10-09] MEDS: SODIUM CHLORIDE 0.9% 1000ML 1,000 ML IV SCH ×2 (09:55→10:00)
[2017-10-09] MEDS: ACETAMINOPHEN 325 MG TAB PO PRN (11:00)
--- NOTE | 2017-10-09 13:20 | Progress Note ---
DATE: October 09, 2017 CARDIOLOGY PROGRESS NOTE SUBJECTIVE: Patient denies chest pain or shortness of breath. OBJECTIVE VITAL SIGNS: Temperature 99.5 degrees, pulse 81, respiratory rate 18, blood pressure 133/66, oxygen saturation 98% on room air. GENERAL: Awake, alert, in no acute distress. LUNGS: Clear to auscultation bilaterally. No wheezes or crackles. CARDIOVASCULAR: Normal rate, regular rhythm. No murmur. Normal S1 and S2. ABDOMEN: Soft, nontender. EXTREMITIES: Status post right BKA with surgical dressing noted. Dressing in place on the left lower extremity. Skin changes consistent with chronic venous stasis. CARDIAC MEDICATIONS 1. Hydrochlorothiazide 25 mg p.o. daily. 2. Losartan 100 mg p.o. daily. LABS: Hemoglobin 7.4, hematocrit 22. IMPRESSION 1. Cellulitis, osteomyelitis and septic arthritis of the right ankle/hindfoot status post right below-knee amputation. 2. Minimal peripheral arterial disease with nonhealing infection of the right lower extremity. 3. Staphylococcus aureus bacteremia. 4. Hypertension. 5. Venous insufficiency. RECOMMENDATIONS: Transesophageal echocardiogram did not reveal any evidence of vegetation. Antibiotics per Infectious Disease. Patient is status post right BKA for source control. Continue wound care of the left lower extremity wound. Continue current cardiac medications without changes. Thank you for this consult. We will continue to follow. Job#: [id number] BERNIE
[2017-10-09] MEDS: CEFAZOLIN SOD 2 GM/D5W 50ML 50 ML IV SCH ×2 (14:00→21:13)
[2017-10-09] MEDS: FUROSEMIDE INJ 10 MG/ML 2 ML VIAL IV PRN ×2 (15:00→18:18)
[2017-10-10] VITALS: BP 119/56
[2017-10-10] MEDS: HYDROMORPHONE 0.2MG/ML-SOD CHL 30ML PCA SYRINGE IV PRN (01:56)
[2017-10-10 04:00] VITALS: BP 127/61
[2017-10-10] MEDS: CEFAZOLIN SOD 2 GM/D5W 50ML 50 ML IV SCH ×3 (05:19→22:13)
[2017-10-10 05:34] LABS: BASOPHILS % 0.7 % (0.0-1.0); EOSINOPHILS # (AUTO) 0.2 (0.0-0.4); EOSINOPHILS % 2.5 % (0.0-6.0); HEMATOCRIT 26.8 % (38.2-49.6); HEMOGLOBIN 9.1 g/dL (14.0-18.0); LYMPHOCYTES # (AUTO) 1.6 (1.0-3.2); LYMPHOCYTES % 26.3 % (18.0-39.1); MEAN CORPUSCULAR HEMOGLOBIN 35.8 pg (28-32); MEAN CORPUSCULAR VOLUME 105.5 fL (81-99); MONOCYTES # (AUTO) 0.2 (0.2-0.8); MONOCYTES % 3.1 % (4.4-11.3); NEUTROPHILS # (AUTO) 4.1 (2.1-6.9); NEUTROPHILS % 66.9 % (38.7-80.0); PLATELET COUNT 344 x10e3/uL (140-360); RED BLOOD COUNT 2.54 x10e6/uL (4.3-5.7); RED CELL DISTRIBUTION WIDTH 18.3 % (11.7-14.4)
[2017-10-10 05:53] LABS: ANION GAP 10.1 mmol/L (8-16); BLOOD UREA NITROGEN 10 mg/dL (7-26); BUN/CREATININE RATIO 14 (6-25); CALCIUM 7.6 mg/dL (8.4-10.2); CARBON DIOXIDE 25 mmol/L (22-29); CHLORIDE 104 mmol/L (98-107); EST GLOMERULAR FILTRATION RATE > 60 ML/MIN (60-); GLUCOSE 97 mg/dL (74-118); POTASSIUM 4.1 mmol/L (3.5-5.1); SODIUM 135 mmol/L (136-145)
[2017-10-10] MEDS: LOSARTAN POTASSIUM 100 MG TAB PO SCH (08:30)
[2017-10-10] MEDS: HYDROCHLOROTHIAZIDE 25 MG TAB PO SCH (08:30)
[2017-10-10 08:35] VITALS: BP 117/58
--- NOTE | 2017-10-10 09:10 | Operative Report ---
DATE OF PROCEDURE: October 08, 2017 PREOPERATIVE DIAGNOSES: 1. Chronic septic arthritis and osteomyelitis of the right lower extremity. 2. Venostasis ulcers, right lower extremity. POSTOPERATIVE DIAGNOSES: 1. Chronic septic arthritis and osteomyelitis of the right lower extremity. 2. Venostasis ulcers, right lower extremity. OPERATION/PROCEDURE PERFORMED: Patient underwent a right below-knee amputation. PEDIATRIC NEPHROLOGIST: Kat Hutchinson PA-C ANESTHESIA: General endotracheal intubation anesthesia. IV FLUIDS: Per the anesthesia record. BRIEF DESCRIPTION OF THE PATIENT'S OPERATIVE PROCEDURE: Mr. Olsen was taken to the operating room and placed in the supine position on the operating room table. Following induction of general anesthesia as well as endotracheal intubation, the patient's right lower extremity was examined under anesthesia. He was found to have a gross deformity at the level of the ankle joint on the right. There were also soft tissue skin changes from the ankle to the tibial tubercle consistent with venostasis disease. He also had several full-thickness dermal ulcers on the lateral aspect of his leg overlying the fibula just proximal to the ankle joint. There was an open wound over the medial aspect of the foot that was actively draining purulence. 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 The patient's lower extremity was prepped and draped in standard surgical fashion. The case was begun by creating a fishmouth-type incision distal to the tibial tubercle. This incision was carried through the skin and subcutaneous tissues to the level of the tibia. The neurovascular bundle on the anterior compartment and posterior compartments of the leg were identified, ligated, and retracted within the soft tissues. The remaining muscle was excised through the inferior aspect of the incision. A saw was then used to transect the tibia and fibula. The saw was also used to dull the edges of the tibia. The surgical wound was then copiously irrigated. The tourniquet was deflated, and further hemostasis was obtained. A drain was placed in the bed of the wound. The posterior muscle fascia was brought anteriorly to the anterior muscle fascia, and the anterior and posterior muscle compartments were closed over the tibia providing a cushion to the end of the tibia. The muscle bulk was further shaped to allow for soft tissue closure. The skin was mobilized and then closed in a multilayer fashion. Sterile dressings were applied as well as a plaster splint in extension. The patient was then awakened and taken to the postanesthesia care unit in stable condition. Kat Hutchinson acted as pathology assistant for this case and was necessary for both the prepping and draping of the patient as well as the retraction of soft tissues that allowed this case to be successful. Job#: [id number]
[2017-10-10] MEDS: MUPIROCIN 2% OINT 22 GM TUBE TOP SCH (11:00)
[2017-10-10] MEDS: COLLAGENASE OINTMENT 30 GM TUBE TP SCH (11:00)
[2017-10-10 12:32] VITALS: BP 134/63
[2017-10-10] MEDS: SODIUM CHLORIDE 0.9% 1000ML 1,000 ML IV SCH (14:31)
--- NOTE | 2017-10-10 16:07 | Progress Note ---
DATE: October 10, 2017 CARDIOLOGY PROGRESS NOTE SUBJECTIVE: The patient denies chest pain or shortness of breath. OBJECTIVE VITALS: Temperature 99.4 degrees, pulse 81, respiratory rate 18, blood pressure 117/58, and oxygen saturation 99% on room air. GENERAL: Awake, alert and in no acute distress. LUNGS: Clear to auscultation bilaterally. No wheezes or crackles. CARDIOVASCULAR: Normal rate and regular rhythm. No murmur. Normal S1 and S2. ABDOMEN: Soft and nontender. EXTREMITIES: Status post right BKA. Dressing in place on the left lower extremity. Skin changes consistent with chronic venous stasis. CARDIAC MEDICATIONS 1. Hydrochlorothiazide 25 mg p.o. daily. 2. Losartan 100 mg p.o. daily. LABS: WBC 6, hemoglobin 9.1, hematocrit 26.8, and platelets 344,000. Sodium 135, potassium 4.1, chloride 104, CO2 25, BUN 10, creatinine 0.7. IMPRESSION 1. Cellulitis, osteomyelitis and septic arthritis of the right ankle/hindfoot, status post right below knee amputation. 2. Peripheral arterial disease with nonhealing infection of the right lower extremity. 3. Staphylococcus aureus bacteremia. 4. Hypertension. 5. Venous insufficiency. RECOMMENDATIONS: GENARO did not reveal any evidence of vegetation. Antibiotics per infectious disease. The patient is status post right BKA for source control. Continue wound care of the left lower extremity wound. Blood pressure is acceptable. Continue current cardiac medications without changes. Thank you for this consult. We will continue to follow. Job#: [id number] AL
[2017-10-10 16:26] VITALS: BP 126/65
[2017-10-10 20:00] VITALS: BP 115/55
[2017-10-11] VITALS (7 sets, daily range): BP systolic 111–141; BP diastolic 56–66
[2017-10-11] MEDS: SODIUM CHLORIDE 0.9% 1000ML 1,000 ML IV SCH (04:49)
[2017-10-11] MEDS: CEFAZOLIN SOD 2 GM/D5W 50ML 50 ML IV SCH ×3 (06:05→22:05)
[2017-10-11] MEDS: HYDROCHLOROTHIAZIDE 25 MG TAB PO SCH (09:00)
[2017-10-11] MEDS: MUPIROCIN 2% OINT 22 GM TUBE TOP SCH (09:00)
[2017-10-11] MEDS: COLLAGENASE OINTMENT 30 GM TUBE TP SCH (09:00)
[2017-10-11] MEDS: LOSARTAN POTASSIUM 100 MG TAB PO SCH (09:00)
--- NOTE | 2017-10-11 12:44 | Progress Note ---
DATE: October 11, 2017 CARDIOLOGY PROGRESS NOTE SUBJECTIVE: Mr. Olsen feels well. He has been able to transfer from the bed to the wheelchair. OBJECTIVE GENERAL: Afebrile. VITAL SIGNS: Heart rate 84. Blood pressure 134/65. CARDIOVASCULAR: Regular rhythm. No murmurs or gallops. LUNGS: Clear to auscultation bilaterally. ABDOMEN: Soft. LABORATORY DATA: Hemoglobin was 9.1 yesterday. ASSESSMENT 1. Cellulitis, status post right below-knee amputation. 2. Staphylococcal bacteremia. RECOMMENDATIONS: GENARO was performed. No evidence of vegetation. Continue IV antibiotics. Continue wound care for right below-knee stump. Mr. Olsen has no active cardiac or vascular needs. We will continue to follow on a p.r.n. basis. I thank Dr. Espinosa for this consultation. Job#: [id number] VAS
[2017-10-12] VITALS (8 sets, daily range): BP systolic 107–145; BP diastolic 54–69
[2017-10-12] MEDS: CEFAZOLIN SOD 2 GM/D5W 50ML 50 ML IV SCH ×3 (06:07→21:18)
[2017-10-12] MEDS: HYDROMORPHONE 0.2MG/ML-SOD CHL 30ML PCA SYRINGE IV PRN (06:18)
[2017-10-12] MEDS: HYDROCHLOROTHIAZIDE 25 MG TAB PO SCH (09:00)
[2017-10-12] MEDS: LOSARTAN POTASSIUM 100 MG TAB PO SCH (09:00)
[2017-10-12] MEDS: SODIUM CHLORIDE 0.9% 1000ML 1,000 ML IV SCH ×2 (09:25→23:43)
[2017-10-12] MEDS: MUPIROCIN 2% OINT 22 GM TUBE TOP SCH (21:18)
[2017-10-12] MEDS: COLLAGENASE OINTMENT 30 GM TUBE TP SCH (21:18)
[2017-10-13] VITALS (8 sets, daily range): BP systolic 98–129; BP diastolic 55–74
[2017-10-13] MEDS: CEFAZOLIN SOD 2 GM/D5W 50ML 50 ML IV SCH ×3 (05:42→22:00)
[2017-10-13] MEDS: MUPIROCIN 2% OINT 22 GM TUBE TOP SCH ×2 (06:22→09:34)
[2017-10-13] MEDS: COLLAGENASE OINTMENT 30 GM TUBE TP SCH (06:22)
[2017-10-13] MEDS: LOSARTAN POTASSIUM 100 MG TAB PO SCH (09:34)
[2017-10-13] MEDS: HYDROCHLOROTHIAZIDE 25 MG TAB PO SCH (09:34)
[2017-10-13] MEDS ORDERED: HYDROMORPHONE HCL 2 MG TAB PO PRN (14:30)
[2017-10-13] MEDS ORDERED: FENTANYL 25 MCG/HR PATCH TOP SCH (15:00)
[2017-10-13] MEDS: SODIUM CHLORIDE 0.9% 1000ML 1,000 ML IV SCH (17:00)
[2017-10-14] VITALS (8 sets, daily range): BP systolic 122–144; BP diastolic 56–83
[2017-10-14] MEDS: SODIUM CHLORIDE 0.9% 1000ML 1,000 ML IV SCH (04:05)
[2017-10-14] MEDS: CEFAZOLIN SOD 2 GM/D5W 50ML 50 ML IV SCH ×2 (06:13→14:19)
[2017-10-14] MEDS: COLLAGENASE OINTMENT 30 GM TUBE TP SCH (09:40)
[2017-10-14] MEDS: LOSARTAN POTASSIUM 100 MG TAB PO SCH (09:41)
[2017-10-14] MEDS: HYDROCHLOROTHIAZIDE 25 MG TAB PO SCH (09:41)
--- NOTE | 2017-10-14 19:21 | Progress Note ---
DATE: October 14, 2017 CARDIOLOGY PROGRESS NOTE SUBJECTIVE: The patient denies chest pain or shortness of breath. OBJECTIVE VITAL SIGNS: Temperature 96.2 degrees, pulse 63, respiratory rate 18, blood pressure 144/83, oxygen saturation 100% on room air. GENERAL: Awake, alert and in no acute distress. LUNGS: Clear to auscultation bilaterally. No wheezes or crackles. CARDIOVASCULAR: Normal rate and regular rhythm. No murmur. Normal S1 and S2. ABDOMEN: Soft and nontender. EXTREMITIES: Status post right BKA. Dressing in place on the left lower extremity with skin changes consistent with chronic venous stasis. CARDIAC MEDICATIONS 1. Hydrochlorothiazide 25 mg p.o. daily. 2. Losartan 100 mg p.o. daily. LABS: None today. IMPRESSION 1. Cellulitis, osteomyelitis and septic arthritis of the right ankle/hindfoot, status post right below knee amputation. 2. Peripheral arterial disease with nonhealing infection of the right lower extremity. 3. Staphylococcus aureus bacteremia. 4. Hypertension. 5. Venous insufficiency. RECOMMENDATIONS: GENARO did not reveal any evidence of vegetation. Antibiotics per infectious disease. The patient is status post right BKA for source control. Continue wound care to the left lower extremity wound. Continue current cardiac medications without changes. Thank you for this consult. We will continue to follow. Job#: [id number]
--- NOTE | 2017-10-17 09:22 | Diagnostic Imaging Report ---
PROCEDURE:FLUORO GUID ARTHRO NEEDLE PLMT TECHNIQUE: INDICATION: COMPARISON:None. FINDINGS:See below. CONCLUSION:Please see the dictation of the joint aspiration for full clinical details. Dictated by: Roger Velasco M.D. on 10/17/2017 at 9:31 Electronically approved by: Roger Velasco M.D. on 10/17/2017 at 9:31
--- NOTE | 2017-10-17 09:26 | Diagnostic Imaging Report ---
PROCEDURE:DRAIN/INJ JOINT/BURSA W/US INT COMPARISON:None. INDICATIONS:Ankle swelling and erythema. FINDINGS:Multiple fluoroscopic spot images were acquired of the right ankle. Focused sonographic evaluation of the ankle was performed which demonstrated multiple fluid collections. The right ankle was prepped and draped in usual sterile fashion. 1% lidocaine was infused into the subcutaneous tissues for local anesthesia. Utilizing direct sonographic guidance, an 18 gauge needle was advanced into the fluid collection. 30 cc of purulent fluid was aspirated. Upon completion of the procedure, the needle was removed. A sterile dressing was applied. There were no immediate complications. The patient tolerated the procedure well. The patient was transferred to the post procedure area in stable unchanged condition for further monitoring. CONCLUSION: Successful ultrasound and fluoroscopically guided aspiration of the right ankle joint. The fluid was sent to the laboratory for further evaluation. Dictated by: Roger Velasco M.D. on 10/17/2017 at 9:35 Electronically approved by: Roger Velasco M.D. on 10/17/2017 at 9:35
== END 2017-10-14 18:30 | DRG 854 ==
LOC: ER 13:32 → ERHOLD 19:07 → MED/SURG3 10-02 11:50
PROVIDERS: ADMIT Family Medicine; ATTEND Family Medicine
PROC: 02HV33Z Insertion of Infusion Device into Superior Vena Cava, Percutaneous Approach (ICD-10-PCS; 2017-10-02)
PROC: 0S9F3ZX Drainage of Right Ankle Joint, Percutaneous Approach, Diagnostic (ICD-10-PCS; 2017-10-04)
PROC: 0Y6H0Z3 Detachment at Right Lower Leg, Low, Open Approach (ICD-10-PCS; principal; 2017-10-08 10:30)
PROC: 30233N1 Transfusion of Nonautologous Red Blood Cells into Peripheral Vein, Percutaneous Approach (ICD-10-PCS; 2017-10-09)
DX: A41.01 Sepsis due to Methicillin susceptible Staphylococcus aureus (principal); M86.671 Other chronic osteomyelitis, right ankle and foot; A52.16 Charcot's arthropathy (tabetic); M00.9 Pyogenic arthritis, unspecified; Z68.41 Body mass index [BMI] 40.0-44.9, adult; L03.115 Cellulitis of right lower limb; L97.819 Non-pressure chronic ulcer of other part of right lower leg with unspecified severity; A40.1 Sepsis due to streptococcus, group B; E66.01 Morbid (severe) obesity due to excess calories; I87.2 Venous insufficiency (chronic) (peripheral); I87.8 Other specified disorders of veins; I10 Essential (primary) hypertension; D64.9 Anemia, unspecified; D50.0 Iron deficiency anemia secondary to blood loss (chronic); R53.81 Other malaise; B95.61 Methicillin susceptible Staphylococcus aureus infection as the cause of diseases classified elsewhere; B95.1 Streptococcus, group B, as the cause of diseases classified elsewhere
CPT/HCPCS: 20606; 36415; 36430; 36569; 71010; 74470; 75635; 75989; 76882; 77002; 80048; 80053; 80202; 82948; 83036; 83605; 85014; 85018; 85025; 85610; 85651; 85730; 86140; 86850; 86900; 86920; 87040; 87071; 87075; 87102; 87116; 87186; 87205; 87206; 88307; 88311; 89051; 93306; 93312; 93320; 93325; 93925; 96361; 96367; 96376; 97139; 99284; J0690; J1100; J1885; J1940; J2001; J2250; J2270; J2405; J2543; J2997; J3370; J7030; J7050; P9016; Q9967